=== PATIENT | male | born 2000 | race Caucasian/White ===

== ENCOUNTER 2021-09-23 22:11 | Emergency (ER) | payer SELFPAY ==
[~2021-09-23] VITALS: Ht 165.1 cm; Wt 60.0 kg
[2021-09-23 22:18] VITALS: BP 97/51
[2021-09-23] MEDS ORDERED: SODIUM CHLORIDE 0.9% 1,000 ML IV ONE (22:30)
[2021-09-23 23:03] LABS: BASOPHILS % 2.2 % (0.0-2.0); EOSINOPHILS % 1.2 % (0.0-5.0); HEMATOCRIT. 41.1 % (42.0-52.0); LYMPHOCYTES % 39.1 % (20.0-50.0); MEAN CORPUSCULAR HEMOGLOBIN 31.5 pg (28.0-32.0); MEAN CORPUSCULAR VOLUME 92.3 fL (80.0-94.0); MEAN PLATELET VOLUME 9.3 fl (7.4-10.4); MONOCYTES % 4.4 % (2.0-8.0); NEUTROPHILS % 53.1 % (40.0-76.0); PLATELET 176 x1000/uL (130-400); RED BLOOD CELL COUNT 4.45 mill/uL (4.7-6.1); RED CELL DISTRIBUTION WIDTH 14.3 % (11.6-14.6)
[2021-09-23 23:06] LABS: CLARITY URINE CLEAR (CLEAR); COLOR URINE YELLOW (YELLOW); KETONES URINE NEGATIVE (NEGATIVE); LEUKOCYTE ESTERASE URINE NEGATIVE (NEGATIVE); NITRITE URINE NEGATIVE (NEGATIVE); OCCULT BLOOD URINE NEGATIVE (NEGATIVE); PH URINE 8.5 (4.5-8.0); PROTEIN URINE NEGATIVE (NEGATIVE); SPECIFIC GRAVITY URINE 1.009 (1.005-1.030); UROBILINOGEN URINE 0.2 E.U./dL (0.2-1.0)
[2021-09-23 23:09] LABS: CHLORIDE 105 mEq/L (98-107)
[2021-09-23 23:16] LABS: ETHANOL BLOOD < 10 mg/dL
[2021-09-23 23:18] LABS: *AMPHETAMINES SCREEN URINE NEGATIVE (NEGATIVE); *BARBITURATES SCREEN URINE NEGATIVE (NEGATIVE); *BENZODIAZEPINES SCREEN URINE NEGATIVE (NEGATIVE)
[2021-09-23 23:19] LABS: *COCAINE SCREEN URINE NEGATIVE (NEGATIVE); CANNABINOID URINE SCREEN NEGATIVE (NEGATIVE); METHADONE URINE SCREEN NEGATIVE (NEGATIVE); OPIATES URINE SCREEN NEGATIVE (NEGATIVE); PHENCYCLIDINE URINE SCREEN NEGATIVE (NEGATIVE)
[2021-09-23 23:20] LABS: CREATINE KINASE 365 IU/L (39-308)
== END 2021-09-24 00:35 | disposition home or self-care (01) ==
LOC: ER 22:11
DX: R53.1 Weakness (principal); R00.1 Bradycardia, unspecified; I95.9 Hypotension, unspecified
CPT/HCPCS: 36415; 80053; 80305; 80307; 80320; 80329; 81003; 82550; 84484; 85025; 93005; 96360; 99283; J7030; G0480

== ENCOUNTER 2022-02-06 00:18 | Inpatient (IN) | payer BC ==
[~2022-02-06] VITALS: Ht 160 cm; Wt 51.7 kg
[2022-02-06] VITALS (8 sets, daily range): BP systolic 104–170; BP diastolic 19–113
[2022-02-06] MEDS ORDERED: ASPIRIN 81MG TABLET PO ONE (01:00)
[2022-02-06 01:20] LABS: BASOPHILS % 1.4 % (0.0-2.0); EOSINOPHILS % 1.1 % (0.0-5.0); HEMATOCRIT. 42.2 % (42.0-52.0); HEMOGLOBIN. 14.2 g/dL (14.0-18.0); LYMPHOCYTES % 48.6 % (20.0-50.0); MEAN CORPUSCULAR HEMOGLOBIN 32.6 pg (28.0-32.0); MEAN CORPUSCULAR VOLUME 96.6 fL (80.0-94.0); MEAN PLATELET VOLUME 9.3 fl (7.4-10.4); MONOCYTES % 4.2 % (2.0-8.0); NEUTROPHILS % 44.7 % (40.0-76.0); PLATELET 193 x1000/uL (130-400); RED BLOOD CELL COUNT 4.36 mill/uL (4.7-6.1); RED CELL DISTRIBUTION WIDTH 12.7 % (11.6-14.6)
[2022-02-06 01:28] LABS: CHLORIDE 96 mEq/L (98-107)
[2022-02-06 01:40] LABS: ETHANOL BLOOD < 10 mg/dL
[2022-02-06 02:28] LABS: CLARITY URINE CLEAR (CLEAR); COLOR URINE YELLOW (YELLOW); KETONES URINE NEGATIVE (NEGATIVE); LEUKOCYTE ESTERASE URINE NEGATIVE (NEGATIVE); NITRITE URINE NEGATIVE (NEGATIVE); OCCULT BLOOD URINE NEGATIVE (NEGATIVE); PROTEIN URINE NEGATIVE (NEGATIVE); SPECIFIC GRAVITY URINE 1.003 (1.005-1.030); UROBILINOGEN URINE 0.2 E.U./dL (0.2-1.0)
[2022-02-06 02:41] LABS: *AMPHETAMINES SCREEN URINE NEGATIVE (NEGATIVE); *BARBITURATES SCREEN URINE NEGATIVE (NEGATIVE); *BENZODIAZEPINES SCREEN URINE NEGATIVE (NEGATIVE); *COCAINE SCREEN URINE NEGATIVE (NEGATIVE); CANNABINOID URINE SCREEN PRESUMTIVE POSITIVE (NEGATIVE); METHADONE URINE SCREEN NEGATIVE (NEGATIVE); OPIATES URINE SCREEN NEGATIVE (NEGATIVE); PHENCYCLIDINE URINE SCREEN NEGATIVE (NEGATIVE)
[2022-02-06] MEDS ORDERED: ATROPINE SULFATE 1MG/ML VIAL IV ONE (03:00)
[2022-02-06] MEDS ORDERED: ACETAMINOPHEN 325MG TABLET PO PRN (08:00)
[2022-02-06] MEDS ORDERED: ONDANSETRON HCL 4MG/2ML INJ IV PRN (08:00)
[2022-02-06] MEDS: ATROPINE SULFATE 1MG/10ML SYR IV PRN ×3 (10:30→23:23)
[2022-02-06] MEDS ORDERED: LAMO150T5 MT (11:23)
[2022-02-06] MEDS ORDERED: BUSP10TA3 PO (11:23)
[2022-02-06 11:29] LABS: CORTISOL 24.6 ucg/dL
[2022-02-06 11:30] LABS: TRIOIODOTHYRONINE TOTAL 0.49 ng/ml (0.60-1.81)
[2022-02-07] VITALS (11 sets, daily range): BP systolic 95–127; BP diastolic 40–93
[2022-02-07] MEDS: ATROPINE SULFATE 1MG/10ML SYR IV PRN (16:35)
[2022-02-08] VITALS (12 sets, daily range): BP systolic 99–132; BP diastolic 39–64
[2022-02-08] MEDS: THEOPHYLLINE ANHYDROUS 80 MG/15 ML 120ML PO SCH ×2 (14:44→21:08)
[2022-02-08 15:19] LABS: CHLORIDE 104 mEq/L (98-107)
[2022-02-09] VITALS: BP 105/46
[2022-02-09 02:00] VITALS: BP 112/59
[2022-02-09 04:00] VITALS: BP 93/56
[2022-02-09 06:00] VITALS: BP 105/52
[2022-02-09 06:40] LABS: BASOPHILS % 0.6 % (0.0-2.0); EOSINOPHILS % 0.9 % (0.0-5.0); HEMATOCRIT. 42.7 % (42.0-52.0); HEMOGLOBIN. 14.9 g/dL (14.0-18.0); LYMPHOCYTES % 19.6 % (20.0-50.0); MEAN CORPUSCULAR VOLUME 94.6 fL (80.0-94.0); MEAN PLATELET VOLUME 8.6 fl (7.4-10.4); MONOCYTES % 6.5 % (2.0-8.0); NEUTROPHILS % 72.4 % (40.0-76.0); PLATELET 144 x1000/uL (130-400); RED BLOOD CELL COUNT 4.51 mill/uL (4.7-6.1); RED CELL DISTRIBUTION WIDTH 12.4 % (11.6-14.6)
[2022-02-09 06:47] LABS: CHLORIDE 102 mEq/L (98-107)
[2022-02-09] MEDS: THEOPHYLLINE ANHYDROUS 80 MG/15 ML 120ML PO SCH ×2 (09:43→13:28)
[2022-02-09] MEDS ORDERED: LIOTHYRONINE SODIUM 5MCG TABLET PO SCH (12:00)
[2022-02-09] MEDS ORDERED: THEOL PO (12:45)
[2022-02-09] MEDS ORDERED: CYTO5 PO (12:45)
[2022-02-09] MEDS ORDERED: LAM25 PO (12:45)
[2022-02-09] MEDS ORDERED: ARIPIPRAZOLE 2MG TABLET PO SCH (13:00)
[2022-02-09 15:14] VITALS: BP 108/59
[2022-02-09] MEDS ORDERED: LAMOTRIGINE 25MG TABLET PO SCH (21:00)
[2022-02-09] MEDS ORDERED: BUSPIRONE HCL 5MG TABLET PO SCH (21:00)
== END 2022-02-09 19:46 | disposition home or self-care (01) | DRG 309 ==
LOC: ER 00:18 → 5EST 02:12
PROVIDERS: ADMIT Internal Medicine; ATTEND Internal Medicine
DX: R00.1 Bradycardia, unspecified (principal); E87.1 Hypo-osmolality and hyponatremia; E87.8 Other disorders of electrolyte and fluid balance, not elsewhere classified; D72.819 Decreased white blood cell count, unspecified; F12.90 Cannabis use, unspecified, uncomplicated; Z20.822 Contact with and (suspected) exposure to COVID-19; F31.9 Bipolar disorder, unspecified; T43.8X5A Adverse effect of other psychotropic drugs, initial encounter; R63.0 Anorexia; R07.89 Other chest pain; Z88.2 Allergy status to sulfonamides; Z88.8 Allergy status to other drugs, medicaments and biological substances; Y92.89 Other specified places as the place of occurrence of the external cause; Z68.20 Body mass index [BMI] 20.0-20.9, adult
CPT/HCPCS: 36415; 71045; 80048; 80053; 80305; 80320; 81003; 82533; 83735; 83880; 84443; 84480; 84484; 85025; 87426; 93005; 93306; 99291; J0461; G0480